=== PATIENT | female | born 1970 | race Caucasian/White ===

== ENCOUNTER → 2016-04-27 | Outpatient (CLI) | payer BC ==
[2016-04-27 17:50] LABS: Basophils % (A) 1 %; CH 32.2; Eosinophils # (A) 0.4 k/uL (0-0.7); Eosinophils % (A) 5 %; HCT 42.5 % (34.0-46.0); HDW 2.29; Luc # (Auto) 0.17; Luc % (Auto) 2; Lymphocytes # (A) 2.5 k/uL (1.0-4.8); Lymphocytes % (A) 32 %; MCH 31.4 pg (25.0-35.0); MCHC 33.1 g/dL (31.0-37.0); MCV 94.9 fL (80.0-100.0); Mean Platelet Volume 7.1; Monocytes # (A) 0.4 k/uL (0-1.0); Monocytes % (A) 5 %; Neutrophils # (A) 4.2 k/uL (1.3-7.7); Neutrophils % (A) 55 %; RBC 4.47 m/uL (3.80-5.40); RDW 12.9 % (11.5-15.5); WBC 7.6 k/uL (3.8-10.6); WBC (Perox) 7.41
[2016-05-05 10:25] LABS: Mis test requested (Blood) PML-RARA by PCR
== END | disposition home or self-care (01) ==
LOC: LABWHC1 17:20
PROVIDERS: ATTEND Internal Medicine
DX: D47.3 Essential (hemorrhagic) thrombocythemia (principal); C95.00 Acute leukemia of unspecified cell type not having achieved remission; C92.Z1 Other myeloid leukemia, in remission; C92.41 Acute promyelocytic leukemia, in remission
CPT/HCPCS: 36415; 81315; 85025

== ENCOUNTER → 2016-05-01 | Outpatient (CLI) | payer BC ==
[2016-05-01 09:48] LABS: ALT 41 U/L (9-52); AST 20 U/L (14-36); Alkaline Phosphatase 76 U/L (38-126); Anion Gap 10 mmol/L; Blood Urea Nitrogen 20 mg/dL (7-17); Calcium 9.3 mg/dL (8.4-10.2); Carbon Dioxide 26 mmol/L (22-30); Chloride 105 mmol/L (98-107); Cholesterol 199 mg/dL (<200); Glucose 119 mg/dL (74-99); HDL Cholesterol 44 mg/dL (40-60); Iron 140 ug/dL (37-170); Non-African American GFR(MDRD) >60 (>60 ml/min/1.73 sqM); Phosphorous 3.6 mg/dL (2.5-4.5); Potassium 4.2 mmol/L (3.5-5.1); Sodium 141 mmol/L (137-145); Total Bilirubin 0.8 mg/dL (0.2-1.3); Total Protein 6.8 g/dL (6.3-8.2); Triglycerides 140 mg/dL (<150)
[2016-05-01 10:04] LABS: Prealbumin 23 mg/dL (18-36); Total Iron Binding Capacity 318 ug/dL (265-497)
[2016-05-01 10:44] LABS: Vitamin B12 714 pg/mL (239-931)
[2016-05-03 17:42] LABS: Selenium 150 mcg/L (63-160)
== END ==
LOC: LABWHC1 07:19
PROVIDERS: ATTEND Surgery
DX: Z48.815 Encounter for surgical aftercare following surgery on the digestive system (principal); E66.01 Morbid (severe) obesity due to excess calories; E44.0 Moderate protein-calorie malnutrition; Z98.84 Bariatric surgery status
CPT/HCPCS: 36415; 80053; 80061; 82306; 82525; 82607; 82728; 83540; 83550; 83735; 84100; 84134; 84255; 84425; 84443; 84590; 84630

== ENCOUNTER → 2016-05-03 | Outpatient (CLI) | payer BC ==
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
== END | disposition home or self-care (01) ==
LOC: RADXRMAIN 09:31
PROVIDERS: ATTEND Surgery
DX: M25.571 Pain in right ankle and joints of right foot (principal); E05.90 Thyrotoxicosis, unspecified without thyrotoxic crisis or storm
CPT/HCPCS: 84432; 84439; 84481

== ENCOUNTER → 2016-05-03 | Outpatient (CLI) | payer BC ==
--- NOTE | 2016-05-03 09:39 | P.GSHP ---
History of Present Illness H&P Date: 05/03/16 Principal diagnosis: Status post sleeve gastrectomy 10/06/15 44 years old female with morbid obesity initial BMI 56.6, height 5 feet 1.1 inches, weight 301.50 pounds status post laparoscopic sleeve gastrectomy on 05/2015. She denies any nausea or vomiting. Tolerating diet No fever, chills or rigors. Intermittent refux well contolled with 20 mg daily PPI. Her comorbid conditions include obstructive sleep apnea on CPAP, hypertension, and depression. History of acute leukemia status post chemotherapy, in remission for last 1 year and cleared by oncologist for surgery. 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 Lives with a female partner. Initial BMI 56.6, weight 301.5 pounds Postoperative visit #1, 10/13/2015: Weight 125.6 KG, BMI 52 Postoperative visit #2, 11/03/2015, weight 123.7 KG, BMI 51.2 Postoperative visit #3, 01/12/2016, weight 116.34 KG, BMI 48 Postoperative visit #4, 05/03/2016 , weight 116.34 KG, BMI 48 - Review of Systems Comment: Constitutional: Denies fever or loss of appetite HEENT: No difficulty in vision or hearing. Denies dysphagia. Cardiovascular: Denies chest pain, palpitations, dizziness, shortness of breath. Respiratory: No cough, shortness of breath. Remote history of smoking Gastrointestinal: No recent change in bowel habits, no abdominal pain, no nausea or vomiting. Mild reflux symptoms after chemotherapy and takes omeprazole 20 mg daily Integumentary: No ulcers on my rash or varicose veins Genitourinary: No urinary incontinence, hematuria or dysuria Neurologic: No seizures, denies weakness in upper or lower extremities, tingling in lower extremities Musculoskeletal: Occasional left knee pain and back pain. Right ankle pain Psychiatry: Known history of depression, no anxiety or psychosis Past Medical History Past Medical History: Cancer, GERD/Reflux, Hypertension, Skin Disorder, Sleep Apnea/CPAP/BIPAP Additional Past Medical History / Comment(s): hx migraines long time ago,tmj, hiatal hernia, eczema, hx leukemia, hx anemia d/t her leukemia, neuropathy in feet, History of Any Multi-Drug Resistant Organisms: None Reported Past Surgical History: Adenoidectomy, Bariatric Surgery, Tonsillectomy Additional Past Surgical History / Comment(s): Port placement and later removal , BONE MARROW BIOPSY x 3, D&C x 2, bilateral arms surgical repair of dog bites, sinus surgery. 10-06-15 lap sleeve. Past Anesthesia/Blood Transfusion Reactions: No Reported Reaction Past Psychological History: Anxiety Additional Psychological History / Comment(s): pt lives with her partner paola and 2 children, has 2 dogs ,3 cats, pt independnat when up no out side service. Smoking Status: Former smoker Past Alcohol Use History: Occasional Additional Past Alcohol Use History / Comment(s): smoked on and off x 20 years- socially,quit 2013 Past Drug Use History: None Reported - Past Family History Father Family Medical History: Cancer Mother Family Medical History: Cancer Additional Family Medical History / Comment(s): breast cancer, melanoma, Medications and Allergies Home Medications Medication Instructions Recorded Confirmed Type Cetirizine HCl [Zyrtec] 10 mg PO DAILY 07/11/14 05/03/16 History Hydrochlorothiazide 25 mg PO DAILY 07/11/14 05/03/16 History Metoprolol Tartrate 50 mg PO BID 07/11/14 05/03/16 History PARoxetine HCL [Paxil] 30 mg PO DAILY 07/11/14 05/03/16 History Diazepam [Valium] 5 mg PO HS PRN 10/06/15 05/03/16 History Omeprazole 1 tab PO DAILY 05/03/16 05/03/16 History rOPINIRole HCL [Requip] 1 tab PO DAILY 05/03/16 05/03/16 History Allergies Allergy/AdvReac Type Severity Reaction Status Date / Time latex Allergy skin Verified 05/03/16 09:19 irritation Penicillins AdvReac Rash/Hives Verified 05/03/16 09:19 Surgical - Exam General: Patient is alert and oriented to time, place and person and cooperative with exam. HEENT: No pallor, no icterus, no thyroid enlargement, no cervical lymphadenopathy. Chest: Bilateral equal breath sounds present. No wheezes, no crackles. Cardiovascular: Regular rate and rhythm. Abdomen: Soft, nontender, nondistended. No right upper quadrant tenderness Integumentary: No active ulcers or discharge. Multiple well healed lacerations in bilateral wrists Neurologic: Cranial nerves II-XII intact. Strength upper and lower extremities 5/5. No focal neurologic deficits. Gait is normal. Psychiatric: No anxiety or psychosis. No suicidal thoughts. MSK- Limited ROS of right ankle Assessment and Plan (1) GERD (gastroesophageal reflux disease) Status: Acute (2) History of leukemia Status: Acute (3) Hypertension Status: Acute (4) Morbid obesity Status: Acute (5) Sleep apnea with use of continuous positive airway pressure (CPAP) Status: Acute (6) Vitamin D deficiency Status: Acute (7) Hyperthyroidism Status: Acute Plan: 1. Status post laparoscopic sleeve gastrectomy 2. High protein, low carbohydrate diet 3. Omeprazole 20mg po daily 4. Start multivitamin and vitamin D 5. Increase activity as tolerated 6. Follow up at bariatric center in 3 months. Needs information systems project manager visit at the same time 7. Elevated PTH levels. Normal PTH levels 8. Right ankle pain- Xrays 2 views 9. Hyperthyroidism- CHeck T3, T4 and thyroglobulin 10 Prescription given for [facility] 11.. Follow up with PCP regarding ankle pain and thyroid levels
[2016-05-03 09:41] VITALS: BP 155/84; PULSE 67; TEMP 98.2; BMI 47.0
== END | disposition home or self-care (01) ==
LOC: BARWHC3 07:57
PROVIDERS: ATTEND Surgery
DX: Z48.815 Encounter for surgical aftercare following surgery on the digestive system (principal); Z98.84 Bariatric surgery status; E66.01 Morbid (severe) obesity due to excess calories; Z68.42 Body mass index [BMI] 45.0-49.9, adult; E55.9 Vitamin D deficiency, unspecified; K21.9 Gastro-esophageal reflux disease without esophagitis; Z85.6 Personal history of leukemia; I10 Essential (primary) hypertension; G47.30 Sleep apnea, unspecified; Z99.89 Dependence on other enabling machines and devices; E05.90 Thyrotoxicosis, unspecified without thyrotoxic crisis or storm; M25.571 Pain in right ankle and joints of right foot; Z87.891 Personal history of nicotine dependence; Z79.899 Other long term (current) drug therapy; Z88.0 Allergy status to penicillin; Z91.040 Latex allergy status; F41.9 Anxiety disorder, unspecified; G62.9 Polyneuropathy, unspecified; Z92.21 Personal history of antineoplastic chemotherapy
CPT/HCPCS: 99211

== ENCOUNTER → 2016-12-12 | Outpatient (CLI) | payer BC ==
--- NOTE | 2016-12-15 14:28 | MM ---
Reason for exam: screening (asymptomatic). Last mammogram was performed 1 year and 10 months ago. History: Patient has history of other cancer at age 43 and is nulliparous. Family history of breast cancer in mother at age 62. Took hormonal contraceptives for 25 years beginning at age 43. Physical Findings: A clinical breast exam by your physician is recommended on an annual basis and results should be correlated with mammographic findings. MG 3D Screening Mammo W/Cad Bilateral CC and MLO view(s) were taken. Prior study comparison: February 24, 2015, mammogram, performed at [facility]. There are scattered fibroglandular densities. No suspicious abnormality. No significant changes when compared with prior studies. ASSESSMENT: Negative, BI-RAD 1 RECOMMENDATION: Routine screening mammogram of both breasts in 1 year.
== END | disposition home or self-care (01) ==
LOC: RADMAMWWP 16:39
PROVIDERS: ATTEND Obstetrics & Gynecology
DX: Z12.31 Encounter for screening mammogram for malignant neoplasm of breast (principal)
CPT/HCPCS: 77063; G0202

== ENCOUNTER 2020-03-15 10:43 | Emergency (ER) | payer BC ==
[2020-03-15] MEDS ORDERED: SODIUM CHLORIDE 0.9% 1,000 ML IV STA (11:23)
--- NOTE | 2020-03-15 11:27 | ED ---
General Adult HPI <Addison Marcelo - Last Filed: 03/15/20 12:38> - General Source: patient, RN notes reviewed Mode of arrival: ambulatory Limitations: no limitations <Mika Muniz - Last Filed: 03/15/20 12:47> - General Chief complaint: Shortness of Breath Stated complaint: SOB Time Seen by Provider: 03/15/20 11:07 - History of Present Illness Initial comments: 49-year-old female presents emergency Department with chief complaint of shortness breath. Patient states his symptoms are yesterday. She felt that it was just because she had some wine the night before. Patient that she not feel well but states he woke up today started taking a shower states that she is extremely short of breath states is worse with any exertion. She reports no fevers or chills no cough or chest congestion. Patient states she had Covid 2 months ago. Patient has no leg pain no leg swelling no history of CHF no prior cardiac disease or any known lung disease. Patient states she has a history of leukemia in remission 5 years. (Mika Muniz) - Related Data Home Medications Medication Instructions Recorded Confirmed Cetirizine HCl [Zyrtec] 10 mg PO DAILY 07/11/14 05/03/16 Hydrochlorothiazide 25 mg PO DAILY 07/11/14 05/03/16 Metoprolol Tartrate 50 mg PO BID 07/11/14 05/03/16 PARoxetine HCL [Paxil] 30 mg PO DAILY 07/11/14 05/03/16 Diazepam [Valium] 5 mg PO HS PRN 10/06/15 05/03/16 Omeprazole 1 tab PO DAILY 05/03/16 05/03/16 rOPINIRole HCL [Requip] 1 tab PO DAILY 05/03/16 05/03/16 Previous Rx's Medication Instructions Recorded HYDROcodone/APAP 7.5-325MG [[place] 1 tab PO Q4H PRN #30 tab 10/07/15 7.5-325] Allergies Allergy/AdvReac Type Severity Reaction Status Date / Time latex Allergy skin Verified 03/15/20 11:05 irritation Penicillins AdvReac Rash/Hives Verified 03/15/20 11:05 Review of Systems ROS Other: All systems not noted in ROS Statement are negative. <Addison Marcelo - Last Filed: 03/15/20 12:38> ROS Other: All systems not noted in ROS Statement are negative. <Mika Muniz M - Last Filed: 03/15/20 12:47> ROS Statement: Those systems with pertinent positive or pertinent negative responses have been documented in the HPI. Past Medical History Past Medical History: Cancer, GERD/Reflux, Hypertension, Skin Disorder, Sleep Apnea/CPAP/BIPAP Additional Past Medical History / Comment(s): hx migraines long time ago,tmj, hiatal hernia, eczema, hx leukemia, hx anemia d/t her leukemia, neuropathy in feet, History of Any Multi-Drug Resistant Organisms: None Reported Past Surgical History: Adenoidectomy, Bariatric Surgery, Tonsillectomy Additional Past Surgical History / Comment(s): Port placement and later removal , BONE MARROW BIOPSY x 3, D&C x 2, bilateral arms surgical repair of dog bites, sinus surgery. 16 lap sleeve. Past Anesthesia/Blood Transfusion Reactions: No Reported Reaction Past Psychological History: Anxiety Smoking Status: Never smoker Past Alcohol Use History: Occasional Past Drug Use History: None Reported - Past Family History Father Family Medical History: Cancer Mother Family Medical History: Cancer Additional Family Medical History / Comment(s): breast cancer, melanoma, <Mika Muniz - Last Filed: 03/15/20 12:47> General Exam Limitations: no limitations General appearance: alert, in no apparent distress Head exam: Present: atraumatic, normocephalic, normal inspection Eye exam: Present: normal appearance, PERRL, EOMI. Absent: scleral icterus, conjunctival injection, periorbital swelling ENT exam: Present: normal exam, normal oropharynx, mucous membranes moist Neck exam: Present: normal inspection. Absent: tenderness, meningismus, lymphadenopathy Respiratory exam: Present: normal lung sounds bilaterally. Absent: respiratory distress, wheezes, rales, rhonchi, stridor Cardiovascular Exam: Present: normal rhythm, tachycardia, normal heart sounds. Absent: systolic murmur, diastolic murmur, rubs, gallop, clicks GI/Abdominal exam: Present: soft, normal bowel sounds. Absent: distended, tenderness, guarding, rebound, rigid Extremities exam: Absent: pedal edema, calf tenderness Skin exam: Present: warm, dry, intact, normal color. Absent: rash <Mika Muniz - Last Filed: 03/15/20 12:47> Course <Addison Marcelo - Last Filed: 03/15/20 12:38> Vital Signs 03/15/20 03/15/20 11:02 12:25 Temperature 98.6 F Pulse Rate 121 H 115 H Respiratory 25 H 20 Rate Blood Pressure 131/90 130/96 O2 Sat by Pulse 94 L 95 Oximetry - Reevaluation(s) Reevaluation #1: 03/15/20 12:30 Case discussed with vascular surgery, Dr[facility] Nava, [facility] (Addison Marcelo) EKG Findings - EKG Comments: EKG Findings:: EKG performed at 01/22/2027 sinus tachycardia with a right bundle rate of 111 ND 122 QRS 136 QT/QTC 364/495 - EKG Results: EKG: interpreted by ERMD <Mika Muniz - Last Filed: 03/15/20 12:47> Medical Decision Making - Lab Data Result diagrams: 03/15/20 11:40 03/15/20 11:40 <Addison Marcelo - Last Filed: 03/15/20 12:38> - Lab Data Result diagrams: 03/15/20 11:40 03/15/20 11:40 <Mika Muniz - Last Filed: 03/15/20 12:47> - Medical Decision Making 49-year-old female presented for shortness breath. Patient upon arrival was tachycardic, to give neck and satting around 94% on room air. Patient did have labs EKG and CT Samuel ordered. Patient CT shows evidence of bilateral pulmonary edema with right ventricle dilation, strain. Patient was started on high-dose heparin immediately case discussed with Dr. Nava who [facility] Patient case discussed with Maddi Colbert (Mika Muniz) - Lab Data Lab Results 03/15/20 03/15/20 Range/Units 11:40 11:40 WBC 10.9 H (3.8-10.6) k/uL RBC 4.87 (3.80-5.40) m/uL Hgb 15.5 (11.4-16.0) gm/dL Hct 45.1 (34.0-46.0) % MCV 92.6 (80.0-100.0) fL MCH 31.8 (25.0-35.0) pg MCHC 34.4 (31.0-37.0) g/dL RDW 12.9 (11.5-15.5) % Plt Count 177 (150-450) k/uL MPV 7.6 Neutrophils % 81 % Lymphocytes % 13 % Monocytes % 4 % Eosinophils % 0 % Basophils % 0 % Neutrophils # 8.9 H (1.3-7.7) k/uL Lymphocytes # 1.4 (1.0-4.8) k/uL Monocytes # 0.5 (0-1.0) k/uL Eosinophils # 0.0 (0-0.7) k/uL Basophils # 0.1 (0-0.2) k/uL Sodium 138 (137-145) mmol/L Potassium 4.2 (3.5-5.1) mmol/L Chloride 105 (98-107) mmol/L Carbon Dioxide 22 (22-30) mmol/L Anion Gap 11 mmol/L BUN 30 H (7-17) mg/dL Creatinine 0.81 (0.52-1.04) mg/dL Est GFR (CKD-EPI)AfAm >90 (>60 ml/min/1.73 sqM) Est GFR (CKD-EPI)NonAf 87 (>60 ml/min/1.73 sqM) Glucose 174 H (74-99) mg/dL Calcium 9.7 (8.4-10.2) mg/dL Total Bilirubin 0.5 (0.2-1.3) mg/dL AST 29 (14-36) U/L ALT 29 (4-34) U/L Alkaline Phosphatase 91 (38-126) U/L Total Protein 7.4 (6.3-8.2) g/dL Albumin 4.2 (3.5-5.0) g/dL Critical Care Time Critical Care Time: Yes Total Critical Care Time: 35 <Mika Muniz - Last Filed: 03/15/20 12:47> Critical Care Time: Total 35 minutes of critical care time were used to initially evaluated the patient, ordering labs, EKG and CT of the chest. Patient found to have bilateral pulmonary embolism with right ventricle dilation, strain. Patient was started on high-dose heparin case discussed with vascular surgery and accepting transfer facility [facility]. (Mika Muniz) Disposition <Addison Marcelo - Last Filed: 03/15/20 12:38> Time of Disposition: 12:39 - Out of Hospital Transfer - Req. Specs Out of Hospital Transfer - Requested Specifics: Other Emergency Center ([facility]) <Mika Muniz - Last Filed: 03/15/20 12:47> Clinical Impression: Bilateral pulmonary embolism Disposition: OTHER INSTITUTION NOT DEFINED Condition: Serious Referrals: Sharon Hernandez DO [Primary Care Provider] - 1-2 days
[2020-03-15] MEDS ORDERED: HEPARIN SODIUM,PORCINE 5,000 UNIT/ML 1 ML VIAL IV PRN (12:19)
[2020-03-15] MEDS ORDERED: HEPARIN SODIUM,PORCINE 10,000 UNIT/ML 1 ML VIAL IV ONE (12:19)
--- NOTE | 2020-03-15 12:23 | CT ---
EXAMINATION TYPE: CT chest angio for PE DATE OF EXAM: 03/15/2020 COMPARISON: Non-. HISTORY: Shortness of breath CT DLP: 1105.4 mGycm Automated exposure control for dose reduction was used. CONTRAST: CT Chest for pulmonary embolism performed with with IV Contrast, patient injected with 100 mL of Isov ue 370. FINDINGS: LUNGS: No suspicious focal consolidation or groundglass opacities. There is no pleural effusion or pneumothorax seen. No suspicious masses. The tracheobronchial tree is patent. MEDIASTINUM: There is satisfactory enhancement of the pulmonary artery and its branches, there is pul monary embolism in the distal left pulmonary artery extending into lingular and lower lobe branches w ith segmental filling defects continuing in the left lower lobe segmental emboli in the left upper lo be are present with subsegmental extension. There is clot in the distal right pulmonary artery with p artial occlusive thrombi in the middle and lower lobe branches having segmental and subsegmental exte nsion. Clot in the right upper lobe distal pulmonary artery with segmental extension. There are no g reater than 1 cm hilar or mediastinal lymph nodes. No pericardial effusion is seen. Right ventricl e is mild to moderately dilated. Abnormal RV over LV ratio. Mild cardiomegaly. OTHER: Prior gastric sleeve surgery with small to moderate size hiatal hernia. Visualized liver low densities consistent with fatty infiltration. IMPRESSION: Bilateral pulmonary emboli with CT evidence for RV strain. No suspicious acute pulmonary parenchymal process. Critical results communicated to ordering emergency care physician finance assistant via telephone at time of dictation.
[2020-03-15 12:28] LABS: Basophils # (A) 0.1 k/uL (0-0.2); Basophils % (A) 0 %; Eosinophils % (A) 0 %; HCT 45.1 % (34.0-46.0); HGB 15.5 gm/dL (11.4-16.0); Lymphocytes # (A) 1.4 k/uL (1.0-4.8); Lymphocytes % (A) 13 %; MCH 31.8 pg (25.0-35.0); MCHC 34.4 g/dL (31.0-37.0); MCV 92.6 fL (80.0-100.0); Mean Platelet Volume 7.6; Monocytes # (A) 0.5 k/uL (0-1.0); Monocytes % (A) 4 %; Neutrophils # (A) 8.9 k/uL (1.3-7.7); Neutrophils % (A) 81 %; Platelet Count 177 k/uL (150-450); RBC 4.87 m/uL (3.80-5.40); RDW 12.9 % (11.5-15.5); WBC 10.9 k/uL (3.8-10.6)
[2020-03-15] MEDS ORDERED: HEPARIN SOD,PORK IN 0.45% NACL 25,000 UNIT in 0.45% NACL 1 250ML.BAG IV SCH (12:30)
[2020-03-15 12:37] LABS: ALT 29 U/L (4-34); AST 29 U/L (14-36); African American GFR (CKD) >90 (>60 ml/min/1.73 sqM); Albumin 4.2 g/dL (3.5-5.0); Alkaline Phosphatase 91 U/L (38-126); Anion Gap 11 mmol/L; Blood Urea Nitrogen 30 mg/dL (7-17); Calcium 9.7 mg/dL (8.4-10.2); Carbon Dioxide 22 mmol/L (22-30); Chloride 105 mmol/L (98-107); Glucose 174 mg/dL (74-99); Non-African American GFR(CKD) 87 (>60 ml/min/1.73 sqM); Potassium 4.2 mmol/L (3.5-5.1); Sodium 138 mmol/L (137-145); Total Bilirubin 0.5 mg/dL (0.2-1.3); Total Protein 7.4 g/dL (6.3-8.2)
[2020-03-15 12:55] LABS: Prothrombin Time 10.4 sec (9.0-12.0)
[2020-03-15 13:21] LABS: D-Dimer 1.72 mg/L FEU (<0.60); Partial Thromboplastin Time 21.3 sec (22.0-30.0)
[2020-03-15 13:29] VITALS: BP 136/84; PULSE 117; RESP 22; TEMP 98.3
== END 2020-03-15 13:30 | disposition other institution (70) ==
LOC: EC 10:43
DX: I26.99 Other pulmonary embolism without acute cor pulmonale (principal); I10 Essential (primary) hypertension; K21.9 Gastro-esophageal reflux disease without esophagitis; G47.30 Sleep apnea, unspecified; F41.9 Anxiety disorder, unspecified; Z79.899 Other long term (current) drug therapy; Z88.0 Allergy status to penicillin; Z91.040 Latex allergy status; Z99.89 Dependence on other enabling machines and devices; Z98.84 Bariatric surgery status
CPT/HCPCS: 36415; 93005; 85379; 83880; 80053; 83605; 84484; 85025; 85610; 85730; 71275; 99291; 96365; J1644 ×2; Q9967

== ENCOUNTER 2023-08-31 15:20 | Day surgery (SDC) | payer BC ==
[2023-08-29 16:03] VITALS: BMI 32.1
[2023-08-31 15:53] VITALS: TEMP 98.1
[2023-08-31] MEDS: IV FLUID CONTINUATION 1,000 ML IV ONE (15:53)
[2023-08-31] MEDS: LACTATED RINGERS 1,000 ML IV SCH (15:56)
[2023-08-31] MEDS ORDERED: PROPOFOL 10 MG/ML 20 ML VIAL IV ONE (16:53)
[2023-08-31] MEDS ORDERED: LIDOCAINE 1% INJ 10MG/ML (20 ML MDV) ONE (16:53)
--- NOTE | 2023-08-31 17:15 | P.PCN ---
Date of Procedure: 08/31/23 Procedure(s) Performed: Brief history: Patient is a pleasant 52-year-old white female scheduled for an elective upper endoscopy as well as colonoscopy as a part of evaluation of function history of GERD and screening for colon cancer Procedure performed: Esophagogastroduodenoscopy Colonoscopy Preoperative diagnosis: Longstanding history of GERD Screening for colon cancer Anesthesia: MAC Procedure: After informed consent was obtained from the patient was brought into the endoscopy unit and IV sedation was administered by anesthesia under continuous monitoring. Initially upper endoscopy was done. The Olympus GF 160 video endoscope was inserted inserted into the mouth and esophagus intubated without any difficulty and was gradually advanced into the stomach and duodenum and carefully examined. The bulb and second part of the duodenum appeared normal. The scope was then withdrawn into the stomach adequately insufflated with air and upon careful examination the antrum and body, cardia and fundus appeared normal. The scope was then withdrawn into the esophagus. Moderate size hiatal hernia noted. The GE junction was located at 32 cm to the incisors. It appeared regular with no erythema erosions or ulcerations. Rest of the esophagus appeared normal. Patient tolerated the procedure well. At this time the patient continued to remain sedation. Initial digital rectal examination was normal. Olympus CF 160 video colonoscope was then inserted into the rectum and gradually advanced to the cecum without any difficulty. Careful examination was performed as the scope was gradually being withdrawn. The prep was poor in several layers of the colon. t. The cecum, ascending colon, transverse colon, descending colon, sigmoid colon and rectum appeared normal. Retroflexion was performed in the rectum and no lesions were noted. Patient tolerated the procedure well. Impression: 1. Upper endoscopy revealed moderate size hiatal hernia but no evidence of esophagitis or Osman's esophagus 2. Colonoscopy was within normal limits with no evidence of colorectal neoplasia except for poor prep in several areas of the colon Recommendations: Findings of this examination were discussed with the patient as well as her family. She was advised to continue with Protonix 40 mg twice daily and follow antireflux measures. Recommended repeat screening colonoscopy in 5 years because of poor prep.
[2023-08-31 17:21] VITALS: RESP 16
[2023-08-31 17:39] VITALS: BP 131/74; PULSE 70
== END 2023-08-31 18:00 | disposition home or self-care (01) ==
LOC: ORWHC2ENDO 15:20
PROVIDERS: ATTEND Internal Medicine Gastroenterology
DX: Z12.11 Encounter for screening for malignant neoplasm of colon (principal); K21.9 Gastro-esophageal reflux disease without esophagitis; K44.9 Diaphragmatic hernia without obstruction or gangrene; I10 Essential (primary) hypertension; G47.33 Obstructive sleep apnea (adult) (pediatric); E11.9 Type 2 diabetes mellitus without complications; Z86.711 Personal history of pulmonary embolism; Z88.0 Allergy status to penicillin; Z91.040 Latex allergy status; Z79.01 Long term (current) use of anticoagulants; Z79.899 Other long term (current) drug therapy; Z98.890 Other specified postprocedural states
CPT/HCPCS: 45378; 43235; J2001; J2704

== ENCOUNTER → 2023-11-07 | Outpatient (CLI) | payer BC ==
[2023-11-07 15:29] LABS: Basophils # (A) 0.05 X 10*3/uL (0.00-0.10); Eosinophils # (A) 0.14 X 10*3/uL (0.04-0.35); Eosinophils % (A) 2.7 %; HCT 42.3 % (37.2-46.3); HGB 14.4 g/dL (12.0-15.0); Lymphocytes # (A) 1.77 X 10*3/uL (0.90-5.00); Lymphocytes % (A) 34.7 %; MCH 31.9 pg (27.0-32.0); MCV 93.8 FL (80.0-97.0); Mean Platelet Volume 10.1 FL (9.5-12.2); Monocytes # (A) 0.56 X 10*3/uL (0.20-1.00); NRBC Per 100 WBC 0 X 10*3/uL (0.00-0.01); Neutrophils # (A) 2.57 X 10*3/uL (1.80-7.70); Neutrophils % (A) 50.4 %; Platelet Count 265 X 10*3/uL (140-440); RBC 4.51 X 10*6/uL (4.10-5.20); RDW 12.3 % (11.5-14.5)
== END | disposition home or self-care (01) ==
LOC: LABWHC1 09:38
PROVIDERS: ATTEND Internal Medicine
DX: C92.41 Acute promyelocytic leukemia, in remission (principal)
CPT/HCPCS: 36415; 85025

== ENCOUNTER → 2024-08-11 | Outpatient (CLI) | payer BC ==
[2024-08-11 10:13] LABS: Basophils # (A) 0.05 X 10*3/uL (0.00-0.10); Basophils % (A) 1.3 %; Eosinophils # (A) 0.16 X 10*3/uL (0.04-0.35); Eosinophils % (A) 4.2 %; HCT 36.7 % (37.2-46.3); HGB 12.3 g/dL (12.0-15.0); Lymphocytes # (A) 1.59 X 10*3/uL (0.90-5.00); Lymphocytes % (A) 41.6 %; MCH 33.6 pg (27.0-32.0); MCHC 33.5 g/dL (32.0-37.0); MCV 100.3 FL (80.0-97.0); Mean Platelet Volume 9.4 FL (9.5-12.2); Monocytes # (A) 0.41 X 10*3/uL (0.20-1.00); Monocytes % (A) 10.7 %; NRBC Per 100 WBC 0 X 10*3/uL (0.00-0.01); Neutrophils % (A) 41.9 %; Platelet Count 252 X 10*3/uL (140-440); RBC 3.66 X 10*6/uL (4.10-5.20); RDW 13.6 % (11.5-14.5); WBC 3.82 X 10*3/uL (4.50-10.00)
[2024-08-11 10:26] LABS: ALT 25 U/L (8-44); AST 24 U/L (13-35); Albumin 4.3 g/dL (3.8-4.9); Albumin/Globulin Ratio 2.39 Ratio (1.60-3.17); Alkaline Phosphatase 49 U/L (41-126); BUN/Creat Ratio 25.14 Ratio (12.00-20.00); Blood Urea Nitrogen 17.6 mg/dL (9.0-27.0); Calcium 9.1 mg/dL (8.7-10.3); Carbon Dioxide 26.9 mmol/L (21.6-31.8); Chloride 105 mmol/L (96-109); Chol/HDL Ratio 2.75 Ratio; Globulin 1.8 g/dL (1.6-3.3); Glucose 100 mg/dL (70-110); LDL Cholesterol,Calculated 107.9 mg/dL (0.0-131.0); Potassium 3.7 mmol/L (3.5-5.5); Sodium 142 mmol/L (135-145); Total Bilirubin 0.4 mg/dL (0.3-1.2); Total Protein 6.1 g/dL (6.2-8.2); VLDL Calculation 16.14 mg/dL (5.00-40.00)
== END | disposition home or self-care (01) ==
LOC: LABWHC1 07:27
PROVIDERS: ATTEND Family Medicine
DX: E78.5 Hyperlipidemia, unspecified (principal); I10 Essential (primary) hypertension
CPT/HCPCS: 36415; 80053; 80061; 85025